=== PATIENT | female | born 1995 | race Caucasian/White ===

== ENCOUNTER 2017-10-11 09:31 | Emergency (ER) | payer OTHER, SELFPAY ==
[2017-10-11 09:42] VITALS: BP 129/82; PULSE 75; RESP 15; TEMP 36.8; O2SAT 99; BMI 36.0
--- NOTE | 2017-10-11 09:50 | ED.BACK ---
HPI - Back Pain/Injury General Chief Complaint: Back Pain/Injury Stated Complaint: BACK PAIN Time Seen by Provider: 10/11/17 09:42 Source: patient Mode of arrival: ambulatory Limitations: no limitations History of Present Illness HPI Narrative: Patient is a 22-year-old female who presents with thoracic back pain of her about the last 2 weeks. She says she was walking around the store when it started hurting. She denies numbness or tingling. It hurts every time she moves her arm. She took Advil without much relief. [place] She says now over the last 3 days it is progressively getting worse. MD Complaint: back pain Related Data Previous Rx's Medication Instructions Recorded cyclobenzaprine 5 mg PO TID PRN #10 tab 10/11/17 Allergies Allergy/AdvReac Type Severity Reaction Status Date / Time No Known Drug Allergies Allergy Verified 10/11/17 09:42 Review of Systems Review of Systems GENERAL: Denies chills,fever HEENT: Denies throat pain RESPIRATORY: Denies dyspnea, cough, wheezing CARDIOVASCULAR: Denies chest pain, palpitations GASTROINTESTINAL: Denies nausea, vomiting MUSCULOSKELETAL: See HPI SKIN: No rash, no laceration, no pruritus NEUROLOGIC: Denies weakness, dizziness, headache, numbness 8 point review of systems is negative except for those stated above and HPI Exam Initial Vital Signs Initial Vital Signs: Vital Signs Temperature 98.3 F 10/11/17 09:42 Pulse Rate 75 10/11/17 09:42 Respiratory Rate 15 10/11/17 09:42 Blood Pressure 129/82 H 10/11/17 09:42 Pulse Oximetry 99 10/11/17 09:42 GENERAL: Well-appearing, well-nourished and in no acute distress. HEENT: Head atraumatic,EOMI, pupils reactive, face symmetric, moist mucous membranes CARDIOVASCULAR: Regular rate and rhythm without murmurs, rubs or gallops. RESPIRATORY: Breath sounds equal bilaterally, no wheezes rales or rhonchi. ABDOMEN: Soft, nontender. Normoactive bowel sounds all 4 quadrants. No guarding or rebound. BACK: No vertebral to this no step-offs tender mid thoracic paraspinal muscles pain reproducible : No CVA tenderness EXTREMITIES: Normal range of motion, no clubbing or edema. Neurovascularly intact NEUROLOGICAL: Alert and oriented x4.Normal gait and speech. Cranial nerves II through XII grossly intact. SKIN: Warm, dry, no laceration, no petechiae, no rashes or lesions. Course Orders Ordered: Discontinued Medications Ketorolac Tromethamine (Toradol) 60 mg IM NOW ONE Stop: 10/11/17 10:05 Last Admin: 10/11/17 10:23 Dose: 60 mg Vital Signs - 8 hr 10/11/17 09:42 Temperature 98.3 F Pulse Rate 75 Respiratory Rate 15 Blood Pressure 129/82 H Pulse Oximetry 99 Discharge Plan Departure Patient Disposition: Home, Self-Care Clinical Impression: Thoracic back pain Discharge Date/Time: 10/11/17 10:32 Interventions: ED Discharge Assessment Last Done: 10/11/17 10:31 Instructions: DI for Thoracic Back Pain Activity Restrictions/Additional Instructions: *You have been diagnosed with thoracic back pain *What to do: Heating pad, increase activity as tolerated *Continue to take medications as directed -Flexeril 1 tablet every 8 hr if needed for muscle spasm -ibuprofen 600-the 800 mg every 8 hr if needed for mild *Follow up with your primary care provider in 2-3 days *Return to ER if you should have any new, worsening or concerning symptoms Prescriptions: New cyclobenzaprine 5 mg tablet 5 mg PO TID PRN (Reason: muscle spasm) Qty: 10 RF: 0
[2017-10-11] MEDS: KETOROLAC 60 MG/2 ML VIAL IM (10:23)
--- NOTE | 2017-10-16 19:20 | PC.NURSE ---
pt call backs question 1&2 everything was pretty good
== END 2017-10-11 10:32 | disposition home or self-care (01) ==
PROVIDERS: Emergency Provider Emergency Medicine
DX: M54.9 Dorsalgia, unspecified (principal); M54.6 Pain in thoracic spine
CPT/HCPCS: 81003; 81025; 96372; 99282; 99283; J1885

== ENCOUNTER 2017-12-20 15:56 | Emergency (ER) | payer OTHER, SELFPAY ==
[2017-12-20 16:06] VITALS: BP 130/87; PULSE 70; RESP 13; TEMP 35.8; O2SAT 99
--- NOTE | 2017-12-20 16:18 | ED.HA ---
HPI - Headache General Chief Complaint: Headache Stated Complaint: sharp right side head pain and tingling Time Seen by Provider: 12/20/17 16:18 Source: patient Mode of arrival: ambulatory Limitations: no limitations History of Present Illness HPI Narrative: Patient is otherwise healthy 22-year-old female here for evaluation of left-sided temporal headache. She states that it started while she was sitting at her desk while at work. She states that it was very tender to the touch. Also had tingling to the left side of her face. She also states that it feels like her left arm ?just woke up from being asleep. No fevers. No neck pain. No nausea vomiting. Never anything like this before. Has not tried anything for prior to arrival. Related Data Previous Rx's Medication Instructions Recorded cyclobenzaprine 5 mg PO TID PRN #10 tab 10/11/17 Allergies Allergy/AdvReac Type Severity Reaction Status Date / Time No Known Drug Allergies Allergy Verified 10/11/17 09:42 Review of Systems Constitutional Denies fatigue, Denies fever(s) and Reports headache(s) ENT Ears, Nose, Mouth, and Throat: Reports headache(s) and Denies neck pain Cardiovascular Denies chest pain and Denies dyspnea Respiratory Denies dyspnea Gastrointestinal Gastrointestinal: Denies abdominal pain Musculoskeletal Denies myalgias, Denies arthralgias and Denies neck pain Integumentary/Breasts Denies lesions and Denies rash Neurologic Reports headache(s) Endocrine Denies fatigue Hematologic/Lymphatic Denies easy bleeding and Denies easy bruising [facility] Medical History Healthy adult (Acute) Surgical History No pertinent past surgical history (Acute) Exam Initial Vital Signs Initial Vital Signs: Vital Signs Temperature 96.4 F L 12/20/17 16:06 Pulse Rate 70 12/20/17 16:06 Respiratory Rate 13 12/20/17 16:06 Blood Pressure 130/87 12/20/17 16:06 Pulse Oximetry 99 12/20/17 16:06 Const General: cooperative, healthy appearing, comfortable, well developed, well groomed and No acute distress Orientation: alert, awake and oriented x3 HENMT Head: normal to inspection and normocephalic Ears: TM's normal bilaterally Eyes Pupils: PERRL EOM: EOM intact bilaterally Resp Effort & Inspection: normal respiratory effort Auscultation: clear to auscultation bilaterally Cardio Rate: regular rate Rhythm: regular rhythm GI Inspection: non-distended Palpation: soft and No firm Back/Spine/Pelvis Back: No CVA tenderness Skin Lesions: no lesions Rashes: no rashes Neuro General: alert, awake and oriented x3 Cranial Nerves: other (Cranial nerves intact except for decreased sensation all 3 areas of the left-sided facial nerve. No objective findings.) Cognition: normal cognition Speech: speech normal Extrem General: normal to inspection and capillary refill normal Psych Appearance: grossly normal and well kempt Course Orders Ordered: ED Orders 12/20/17 16:35 CT head/brain wo con Stat Vital Signs - 8 hr 12/20/17 16:06 12/20/17 17:09 Temperature 96.4 F L Pulse Rate 70 66 Respiratory Rate 13 13 Blood Pressure 130/87 Blood Pressure [Right Arm] 126/56 L Pulse Oximetry 99 100 MDM - Headache Imaging Data CT scan - head: Radiologist's impression: [place] [address] CT Scan Report Signed Patient: SARABJIT AWADHIR#: [id number] : 1995Acct:[id number] Age/Sex: 22 / FDate of Service: 12/20/17 Loc: ED Accession Number: [id number] Procedure: CT head/brain wo con Ordering Provider: Charli Dumas D.O. PROCEDURE: CT HEAD/BRAIN WO CON INDICATIONS: headache TECHNIQUE: Noncontrast 4.5 mm thick angled axial sections acquired from the foramen magnum to the vertex, with coronal and sagittal reformats. For radiation dose reduction, the following was used: automated exposure control, adjustment of mA and/or kV according to patient size. COMPARISON: None. FINDINGS: Image quality: Excellent. CSF spaces: Basal cisterns are patent. No extra-axial fluid collections. Ventricles are normal in size and shape. Brain: No midline shift. No intracranial masses or hemorrhage. Sullivan-white matter interface is normal. Skull and face: Calvarium and visualized facial bones are intact, without suspicious lesions. Sinuses: Visualized sinuses and mastoids are clear. IMPRESSION: Normal for age, no trauma found, source of current headache is not seen. Dictated by: Jd Tomas M.D. on 12/20/2017 at 16:57 Approved by: Jd Tomas M.D. on 12/20/2017 at 17:01 [facility] Narrative Medical decision making narrative: Patient is nontoxic appearing. No objective findings on the exam. She reports decreased sensation in all 3 areas of the facial nerve left-sided face. No eye symptoms at all. Head CT was unremarkable. Doubt CVA, doubt TIA. Patient is young so doubt temporal arteritis. No rashes concerning for zoster. Will hold on further workup for now. Patient was given return precautions. She expressed understanding and agreement with plan. Discharge Plan Departure Patient Disposition: Home Clinical Impression: Headache Instructions: DI for Headache Activity Restrictions/Additional Instructions: [place] Return to the emergency department for any new or worsening symptoms like we discussed. Prescriptions: No Action cyclobenzaprine 5 mg tablet 5 mg PO TID PRN (Reason: muscle spasm) Qty: 10 RF: 0
--- NOTE | 2017-12-20 16:35 | DI.CT.S_ITS ---
PROCEDURE: CT HEAD/BRAIN WO CON INDICATIONS: headache TECHNIQUE: Noncontrast 4.5 mm thick angled axial sections acquired from the foramen magnum to the vertex, with coronal and sagittal reformats. For radiation dose reduction, the following was used: automated exposure control, adjustment of mA and/or kV according to patient size. COMPARISON: None. FINDINGS: Image quality: Excellent. CSF spaces: Basal cisterns are patent. No extra-axial fluid collections. Ventricles are normal in size and shape. Brain: No midline shift. No intracranial masses or hemorrhage. Sullivan-white matter interface is normal. Skull and face: Calvarium and visualized facial bones are intact, without suspicious lesions. Sinuses: Visualized sinuses and mastoids are clear. IMPRESSION: Normal for age, no trauma found, source of current headache is not seen. Dictated by: Jd Tomas M.D. on 12/20/2017 at 16:57 Approved by: Jd Tomas M.D. on 12/20/2017 at 17:01
--- NOTE | 2017-12-20 17:08 | PC.NURSE ---
orders for meds, came to desk after asking for med less than 1 min ago. mother at bedside. pt mother and another lady asking for more blankets and pillows. pt placed on monitor after morphine states pain 8/10
[2017-12-20 17:09] VITALS: BP 126/56; PULSE 66; RESP 13; O2SAT 100
== END 2017-12-20 17:53 | disposition home or self-care (01) ==
PROVIDERS: Emergency Provider Emergency Medicine
DX: R51 Headache (principal)
CPT/HCPCS: 70450; 99282; 99283